=== PATIENT | male | born 1970 | race Hispanic/Latino ===

== ENCOUNTER 2020-08-14 13:23 | Inpatient (IN) | payer BC, OTHER ==
[~2020-08-14] VITALS: Ht 180.3 cm; Wt 126.2 kg
[2020-08-14] MEDS ORDERED: CLINDAMYCIN IVPB 600MG/50ML 50 ML IV ONE (13:42)
[2020-08-14 14:06] LABS: BASOPHILS % (AUTO) 0.5 % (0.0-5.0); HEMATOCRIT 40.4 % (42-54); LYMPHOCYTES % (AUTO) 27.1 % (21.0-51.0); MEAN CORPUSCULAR HEMOGLOBIN 30.9 pg (27.0-33.0); MEAN CORPUSCULAR HGB CONC 34.2 g/dL (32.0-36.0); MEAN CORPUSCULAR VOLUME 90.4 fL (79-99); MONOCYTES % (AUTO) 12.8 % (3.0-13.0); NEUTROPHILS % (AUTO) 57.1 % (40.0-77.0); PLATELET COUNT (AUTO) 271 K/uL (130-400); RED BLOOD CELL COUNT(AUTO) 4.47 MIL/uL (4.50-6.20); RED CELL DISTRIBUTION WIDTH 13.4 % (11.0-15.5)
[2020-08-14 14:15] LABS: CREATININE 1.3 mg/dL (0.5-1.5)
[2020-08-14 14:20] LABS: ALBUMIN 3.6 g/dL (3.5-5.0); BILIRUBIN,TOTAL 0.3 mg/dL (0.2-1.0); CRP QUANTITATIVE 141.1 mg/L (0.00-9.0); TOTAL PROTEIN, SERUM 7.9 g/dL (6.0-8.3)
[2020-08-14 15:46] LABS: ERYTHROCYTE SEDIMENTATION RATE 85 MM/HR (0-15)
[2020-08-14] MEDS ORDERED: MORPHINE 2 MG SYG IV PRN (17:30)
[2020-08-14] MEDS ORDERED: ACETAMINOPHEN 325 MG TAB PO PRN ×2 (17:30)
[2020-08-14] MEDS ORDERED: ONDANSETRON 4MG INJ IV PRN (17:30)
[2020-08-14] MEDS ORDERED: CLINDAMYCIN IVPB 600MG/50ML 50 ML IV SCH (17:30)
[2020-08-14] MEDS: 0.9%NACL 1000ML 1,000 ML IV SCH (17:30)
[2020-08-14] MEDS ORDERED: VANCOMYCIN PROTOCOL PER PHARMACY IV PRN (17:45)
[2020-08-14 17:52] LABS: HEMOGLOBIN A1C 7.3 % (4.0-6.0)
[2020-08-14 17:53] LABS: CHOLESTEROL 165 mg/dL (<200); HDL CHOLESTEROL 98 mg/dL (29-71); LDL DIRECT 101 mg/dL (0-99); TRIGLYCERIDES 311 mg/dL (30-200)
[2020-08-14 17:54] LABS: APPEARANCE,URINE Clear (CLEAR); BILIRUBIN,URINE Negative (NEGATIVE); COLOR,URINE Yellow (YELLOW); GLUCOSE, URINE (UA) Negative (NEGATIVE); KETONES,URINE Negative (NEGATIVE); LEUKOCYTE ESTERASE ,URINE Negative (NEGATIVE); NITRATE,URINE Negative (NEGATIVE); OCCULT BLOOD,URINE Negative (NEGATIVE); PH,URINE 5.5 (5.0-8.0); PROTEIN,URINE Negative (NEGATIVE); UROBILINOGEN,URINE 0.2 mg/dL (0.2-1.0)
[2020-08-14] MEDS ORDERED: VANCOMYCIN 1G 2 GM in 0.9% NACL 500ML IV.SOLN 500 ML IV ONE (18:00)
[2020-08-14] MEDS: ZOSYN 3.375GM+NS 50ML 50 ML IV SCH (21:00)
[2020-08-14] MEDS: FAMOTIDINE 20MG VIAL IV SCH (21:00)
[2020-08-14] MEDS ORDERED: ZOSYN 3.375GM+NS 50ML 50 ML IV ONE (22:28)
[2020-08-14] MEDS ORDERED: FAMOTIDINE 20MG VIAL IV ONE (22:29)
[2020-08-15] VITALS (7 sets, daily range): BP systolic 114–127; BP diastolic 58–70
[2020-08-15] MEDS: 0.9%NACL 1000ML 1,000 ML IV SCH ×2 (03:30→13:30)
[2020-08-15] MEDS: ZOSYN 3.375GM+NS 50ML 50 ML IV SCH ×3 (05:00→20:04)
[2020-08-15 05:46] LABS: BASOPHILS % (AUTO) 0.5 % (0.0-5.0); EOSINOPHILS % (AUTO) 3.1 % (0.0-8.0); HEMATOCRIT 40.6 % (42-54); MEAN CORPUSCULAR HEMOGLOBIN 30.3 pg (27.0-33.0); MEAN CORPUSCULAR HGB CONC 32.8 g/dL (32.0-36.0); MEAN CORPUSCULAR VOLUME 92.5 fL (79-99); MONOCYTES % (AUTO) 9.5 % (3.0-13.0); NEUTROPHILS % (AUTO) 55.7 % (40.0-77.0); PLATELET COUNT (AUTO) 260 K/uL (130-400); RED BLOOD CELL COUNT(AUTO) 4.39 MIL/uL (4.50-6.20); RED CELL DISTRIBUTION WIDTH 13.8 % (11.0-15.5)
[2020-08-15 05:59] LABS: ALBUMIN 3.5 g/dL (3.5-5.0); BILIRUBIN,TOTAL 0.4 mg/dL (0.2-1.0); CREATININE 1.1 mg/dL (0.5-1.5); CRP QUANTITATIVE 91.2 mg/L (0.00-9.0); POTASSIUM 4.9 mmol/L (3.5-5.1); TOTAL PROTEIN, SERUM 7.8 g/dL (6.0-8.3)
[2020-08-15] MEDS: VANCOMYCIN 1G/250ML KIT 250 ML IV SCH ×2 (06:00→17:22)
[2020-08-15 07:07] LABS: ERYTHROCYTE SEDIMENTATION RATE 74 MM/HR (0-15)
[2020-08-15] MEDS: INSULIN HUMULIN R 100 UNIT/ML 3ML SQ SCH ×4 (07:30→21:00)
[2020-08-15] MEDS: FAMOTIDINE 20MG VIAL IV SCH ×2 (08:42→20:03)
[2020-08-15] MEDS: ENOXAPARIN SODIUM 40 MG/0.4 ML SYRINGE SQ SCH (08:43)
[2020-08-15] MEDS: ATORVASTATIN 20 MG TABLET PO SCH (20:02)
[2020-08-15] MEDS ORDERED: GARL1000 PO (22:39)
[2020-08-15] MEDS ORDERED: LISI1TAB51 PO (22:39)
[2020-08-15] MEDS ORDERED: FAMO20TA8 PO (22:39)
[2020-08-15] MEDS ORDERED: ESCI-8 PO (22:39)
[2020-08-15] MEDS ORDERED: ALLO300T2 PO (22:39)
[2020-08-15] MEDS ORDERED: DOXY100T2 PO (22:39)
[2020-08-15] MEDS ORDERED: METF-446 PO (22:39)
[2020-08-15] MEDS ORDERED: VITAD50000 PO (22:39)
[2020-08-15] MEDS ORDERED: VITA1TAB22 PO (22:39)
[2020-08-15] MEDS ORDERED: AMOX1TAB16 PO (22:39)
[2020-08-16 04:07] VITALS: BP 101/58
[2020-08-16] MEDS: ZOSYN 3.375GM+NS 50ML 50 ML IV SCH ×3 (05:18→21:00)
[2020-08-16] MEDS: 0.9%NACL 1000ML 1,000 ML IV SCH (05:19)
[2020-08-16] MEDS: INSULIN HUMULIN R 100 UNIT/ML 3ML SQ SCH ×4 (06:05→20:13)
[2020-08-16] MEDS: VANCOMYCIN 1G/250ML KIT 250 ML IV SCH ×2 (06:37→18:26)
[2020-08-16 06:38] LABS: BASOPHILS % (AUTO) 0.7 % (0.0-5.0); EOSINOPHILS % (AUTO) 3.4 % (0.0-8.0); HEMATOCRIT 39.6 % (42-54); LYMPHOCYTES % (AUTO) 30.6 % (21.0-51.0); MEAN CORPUSCULAR HGB CONC 32.8 g/dL (32.0-36.0); MEAN CORPUSCULAR VOLUME 91.2 fL (79-99); MONOCYTES % (AUTO) 10.3 % (3.0-13.0); NEUTROPHILS % (AUTO) 53.3 % (40.0-77.0); PLATELET COUNT (AUTO) 272 K/uL (130-400); RED BLOOD CELL COUNT(AUTO) 4.34 MIL/uL (4.50-6.20); RED CELL DISTRIBUTION WIDTH 13.4 % (11.0-15.5); WHITE BLOOD COUNT (AUTO) 7.3 K/uL (4.8-10.8)
[2020-08-16 06:47] LABS: CRP QUANTITATIVE 46.7 mg/L (0.00-9.0); POTASSIUM 4.9 mmol/L (3.5-5.1)
[2020-08-16] MEDS ORDERED: COMPOUND IV REFRIGERATED 1 EACH IVSOLN MISC PRN (07:30)
[2020-08-16] MEDS: ENOXAPARIN SODIUM 40 MG/0.4 ML SYRINGE SQ SCH (09:35)
[2020-08-16] MEDS: FAMOTIDINE 20MG VIAL IV SCH ×2 (09:35→20:10)
[2020-08-16 10:24] VITALS: BP 130/78
[2020-08-16] MEDS ORDERED: VANCOMYCIN 1G 2 GM in 0.9% NACL 500ML IV.SOLN 500 ML IV SCH (12:00)
[2020-08-16] MEDS ORDERED: ERGOCALCIFEROL (VITAMIN D2) 50,000 UNIT CAPSULE PO SCH (12:12)
[2020-08-16] MEDS: LISINOPRIL 20 MG TABLET PO SCH ×2 (12:20→20:10)
[2020-08-16 12:22] VITALS: BP 124/59
[2020-08-16] MEDS: VITAMIN B COMPLEX 1 CAPSULE PO SCH (16:45)
[2020-08-16] MEDS: HYDROCHLOROTHIAZIDE 25 MG TABLET PO SCH ×2 (16:45→20:13)
[2020-08-16] MEDS: CITALOPRAM 20 MG TABLET PO SCH (16:46)
[2020-08-16] MEDS: ALLOPURINOL 300 MG TABLET PO SCH (16:48)
[2020-08-16 17:30] VITALS: BP 148/71
[2020-08-16 20:04] VITALS: BP 113/57
[2020-08-16] MEDS: ATORVASTATIN 20 MG TABLET PO SCH (20:10)
[2020-08-17 00:04] VITALS: BP 121/50
[2020-08-17 04:04] VITALS: BP 109/51
[2020-08-17] MEDS: ZOSYN 3.375GM+NS 50ML 50 ML IV SCH (05:01)
[2020-08-17 05:29] LABS: BASOPHILS % (AUTO) 0.7 % (0.0-5.0); EOSINOPHILS % (AUTO) 3.7 % (0.0-8.0); HEMATOCRIT 40.2 % (42-54); LYMPHOCYTES % (AUTO) 26.6 % (21.0-51.0); MEAN CORPUSCULAR HEMOGLOBIN 30.5 pg (27.0-33.0); MEAN CORPUSCULAR HGB CONC 33.6 g/dL (32.0-36.0); MONOCYTES % (AUTO) 6.7 % (3.0-13.0); NEUTROPHILS % (AUTO) 60.1 % (40.0-77.0); PLATELET COUNT (AUTO) 313 K/uL (130-400); RED BLOOD CELL COUNT(AUTO) 4.42 MIL/uL (4.50-6.20); RED CELL DISTRIBUTION WIDTH 13.1 % (11.0-15.5); WHITE BLOOD COUNT (AUTO) 9.4 K/uL (4.8-10.8)
[2020-08-17 05:43] LABS: POTASSIUM 3.9 mmol/L (3.5-5.1)
[2020-08-17] MEDS: VANCOMYCIN 1G/250ML KIT 250 ML IV SCH (05:54)
[2020-08-17] MEDS: INSULIN HUMULIN R 100 UNIT/ML 3ML SQ SCH ×2 (06:20→11:30)
[2020-08-17 08:29] VITALS: BP 116/76
[2020-08-17] MEDS: CITALOPRAM 20 MG TABLET PO SCH (09:07)
[2020-08-17] MEDS: VITAMIN B COMPLEX 1 CAPSULE PO SCH (09:07)
[2020-08-17] MEDS: LISINOPRIL 20 MG TABLET PO SCH (09:08)
[2020-08-17] MEDS: FAMOTIDINE 20MG VIAL IV SCH (09:09)
[2020-08-17] MEDS: ALLOPURINOL 300 MG TABLET PO SCH (09:09)
[2020-08-17] MEDS: ENOXAPARIN SODIUM 40 MG/0.4 ML SYRINGE SQ SCH (09:09)
[2020-08-17] MEDS: HYDROCHLOROTHIAZIDE 25 MG TABLET PO SCH (09:13)
== END 2020-08-17 14:30 | disposition home or self-care (01) | DRG 603 ==
LOC: EDH 13:23 → EDHIP 17:41 → 3AH 08-15 02:20
PROVIDERS: ADMIT Internal Medicine; ATTEND Internal Medicine
DX: L03.116 Cellulitis of left lower limb (principal); E87.1 Hypo-osmolality and hyponatremia; M71.22 Synovial cyst of popliteal space [Baker], left knee; E11.9 Type 2 diabetes mellitus without complications; E66.9 Obesity, unspecified; E78.5 Hyperlipidemia, unspecified; I10 Essential (primary) hypertension; R59.0 Localized enlarged lymph nodes; Z68.38 Body mass index [BMI] 38.0-38.9, adult; Z83.3 Family history of diabetes mellitus
CPT/HCPCS: 36415; 73700; 80048; 80053; 80061; 80202; 81003; 82948; 83036; 83605; 84145; 85025; 85651; 86140; 87040; 93971; G0378; J1650; J2543; J3370; J3490; J7040